=== PATIENT | male | born 1945 | race Native Hawaiian/Other Pacific Islander ===

== ENCOUNTER → 2024-02-10 | Outpatient (CLI) | payer MEDICARE | END | disposition home or self-care (01) | LOC: LABPRL 12:00 | PROVIDERS: ATTEND Nurse Practitioner Family | DX: N18.9 Chronic kidney disease, unspecified (principal); D63.1 Anemia in chronic kidney disease; N39.0 Urinary tract infection, site not specified; M10.9 Gout, unspecified; E55.9 Vitamin D deficiency, unspecified; R53.83 Other fatigue | CPT/HCPCS: 80048; 80074; 81050; 82043; 82306; 82570; 82728; 83516; 83540; 83550; 83735; 84156; 84550; 85027; 86038; 86160; 86162; 86225; 86255 ==

== ENCOUNTER → 2024-03-31 | Outpatient (CLI) | payer MEDICARE ==
--- NOTE | 2024-03-31 15:27 | US ---
EXAMINATION TYPE: US kidneys/renal and bladder DATE OF EXAM: 03/31/2024 COMPARISON: NONE CLINICAL INDICATION: Male, 78 years old with history of N18.9 CHRONIC KIDNEY DISEASE, UNSPECIFIED; CK D TECHNIQUE: Grayscale and color Doppler imaging of the bilateral kidneys and urinary bladder: EXAM MEASUREMENTS: Right Kidney: 10.7 x 5.3 x 5.7 cm Left Kidney: 9.7 x 4.5 x 5.0 cm Right Kidney: No evidence of hydro, hypoechoic lesion mid= 0.9 x 0.9 x 0.9 cm too small to characteri ze but statistically most likely related to cyst. Left Kidney: Moderate hydro Bladder: Pt has Urostomy bag- bladder not visualized Renal cortical thickness and echogenicity maintained. IMPRESSION: Moderate left hydronephrosis. No definite nephrolithiasis. Consider CT scan abdomen and pelvis. [facility], , 03/31/2024 3:24 PM
== END | disposition home or self-care (01) ==
LOC: RADUSWWP 14:52
PROVIDERS: ATTEND Internal Medicine
DX: N18.9 Chronic kidney disease, unspecified (principal); N13.30 Unspecified hydronephrosis
CPT/HCPCS: 76770